=== PATIENT | male | born 1955 | race American Indian/Alaskan Native ===

== ENCOUNTER 2017-04-08 08:15 | Outpatient (CLI) | payer MEDICARE ==
--- NOTE | 2017-04-09 15:05 | Ultrasound Report ---
THYROID ULTRASOUND:04/08/17 08:15:00 CLINICAL: Left neck mass. FINDINGS: High-resolution ultrasound demonstrated a normal size thyroid. The right lobe measures 3.6 x 1.1 x 1.2cm. The left lobe measures 3.8 x 1.2 x 1.6. The isthmus measures 3.0 mm AP thickness.. The right lobe is homogeneously echogenic with no nodule or cyst. A left upper pole cyst measures 5 x 3 x 4 mm. A left lower pole cyst measures 3 x 2 x 3 mm. An irregular hypoechoic nodule of the lower pole of the left thyroid measures 5 x 4 x 3 mm. Calcifications are identified in the wall. Ultrasound examination of the left neck revealed a solid hypoechoic submandibular oval mass measuring 2.4 x 1.9 x 2.6 cm. A second similar mass adjacent to the parotid on the left side measures 2.7 x 2.4 x 3.2 cm. Both of these masses has suggestion of a small hilum and are probably abnormal lymph nodes. An abnormal lymph node with a central fat in the upper cervical chain measures 1.0 x 0.5 x 0.9 cm. An abnormal lymph node in the mid cervical region on the left with no central fat measures 1.4 x 0.5 x 0.8 cm. IMPRESSION: 1. Small thyroid with a a few benign cysts and a solid 3 mm partially calcified nodule in the left lower pole. Recommend followup ultrasound in six months. 2. Left cervical and submandibular lymphadenopathy with dominant 2.7 cm left parotid and 2.4 cm left submandibular lymph nodes.
== END 2017-04-08 08:16 | disposition home or self-care (01) ==
LOC: SPVWC 08:15
PROVIDERS: ATTEND Internal Medicine
DX: E04.1 Nontoxic single thyroid nodule (principal); R59.1 Generalized enlarged lymph nodes
CPT/HCPCS: 76536